=== PATIENT | female | born 1985 | race African-American/Black ===

== ENCOUNTER 2016-08-21 13:03 | Emergency (ER) | payer OTHER ==
[2016-08-21 13:08] VITALS: BP 124/80; PULSE 84; TEMP 98; BMI 29.2
[2016-08-21] MEDS ORDERED: ALBUTEROL SO4 2.5/IPRATROPIUM 0.5 INH SOL 3 ML VIAL.NEB. NEB ONE ×2 (14:03→14:13)
--- NOTE | 2016-08-21 16:43 | PDOC ---
History of Present Illness - General Chief Complaint: Cold Symptoms Stated Complaint: SOB, COUGHING Time Seen by Provider: 08/21/16 13:50 History Source: Patient Exam Limitations: No Limitations - History of Present Illness Initial Comments: 08/21/16 16:38 CC COUGHING FOR MONTHS; NO FEVER; NO NVD; Timing/Duration: denies: just prior to arrival Possible Cause: No: no prior episodes Modifying Factors: worse with: albuterol inhaler Past History - Past Medical History Allergies/Adverse Reactions: Allergies Allergy/AdvReac Type Severity Reaction Status Date / Time Tetracyclines Allergy Hives Verified 08/21/16 13:05 Home Medications: Ambulatory Orders NK [No Known Home Medication] 08/21/16 Diabetes: Yes (type 1) - Immunization History Immunization Up to Date: Yes - Psycho/Social/Smoking Cessation Hx Anxiety: No Suicidal Ideation: No Smoking History: Never smoked Have you smoked in the past 12 months: No Information on smoking cessation initiated: No Hx Alcohol Use: No Drug/Substance Use Hx: No Substance Use Type: None Review of Systems - Review of Systems Constitutional: Yes: Symptoms Reported. No: Chills, Fever, Malaise HEENTM: No: Symptoms Reported Respiratory: Yes: Cough. No: Symptoms reported, Orthopnea, SOB with Exertion, Wheezing Cardiac (ROS): Yes: Symptoms Reported ABD/GI: Yes: Symptoms Reported : Yes: Symptoms Reported *Physical Exam - Vital Signs Last Vital Signs Temp Pulse Resp BP Pulse Ox 98 F 84 20 124/80 99 08/21/16 13:06 08/21/16 13:06 08/21/16 13:06 08/21/16 13:06 08/21/16 13:06 - Physical Exam General Appearance: Yes: Appropriately Dressed. No: Apparent Distress HEENT: positive: TMs Normal, Pharynx Normal Neck: positive: Lymphadenopathy (R), Lymphadenopathy (L). negative: Tender, Rigid, Supple Respiratory/Chest: positive: Lungs Clear, Normal Breath Sounds, Respiratory Distress. negative: Accessory Muscle Use Cardiovascular: positive: Regular Rhythm, Regular Rate, Murmur ED Treatment Course - LABORATORY CBC & Chemistry Diagram: 08/21/16 14:07 - Medications Given in the ED: ED Medications Discontinued Medications Generic Name Dose Route Start Last Admin Trade Name Freq PRN Reason Stop Dose Admin Albuterol/Ipratropium 1 amp 08/21/16 14:03 08/21/16 14:14 Duoneb - NEB 08/21/16 14:04 1 amp ONCE ONE Administration Medical Decision Making - Medical Decision Making 08/21/16 16:41 UNABLE TO GET GLUCOSE; WILL CALL PT WITH RESULTS; WILL START SHORT COURSE ON PREDNISONE *DC/Admit/Observation/Transfer Diagnosis at time of Disposition: Coughing - Discharge Dispostion Disposition: HOME Condition at time of disposition: Stable Admit: No - Patient Instructions Additional Instructions: I WILL CALL YOU WITH RESULTS OF GLUCOSE AND CHANGE THERAPY NEEDED - Post Discharge Activity Work/School Note: Back to Work
[2016-08-21 17:02] LABS: CALCIUM 9.2 mg/dL (8.5-10.1); CREATININE 0.8 mg/dL (0.55-1.02)
== END 2016-08-21 17:42 | disposition home or self-care (01) ==
LOC: JERFT 13:03
PROC: 3E0F7GC Introduction of Other Therapeutic Substance into Respiratory Tract, Via Natural or Artificial Opening (ICD-10-PCS; principal; 2016-08-21)
DX: R05 Cough (principal); E10.9 Type 1 diabetes mellitus without complications; Z79.4 Long term (current) use of insulin
CPT/HCPCS: 36415; 80048; 99281-25

== ENCOUNTER 2019-02-07 12:44 | Day surgery (SDC) | payer OTHER ==
[2019-02-04 12:12] VITALS: BMI 30.2
[2019-02-07 14:53] LABS: GLUCOSE,FASTING 259 mg/dL (74-106)
[2019-02-07] MEDS ORDERED: CLINDAMYCIN PHOSPHATE 600 MG/4 ML VIAL IVPB ONE (15:18)
--- NOTE | 2019-02-07 15:58 | OP ---
Operative Note - Note: Operative Date: 02/07/19 Pre-Operative Diagnosis: Right renal stone Operation: Right ESWL Findings: 7 mm lover pole Right renal stones Post-Operative Diagnosis: Same as Pre-op Surgeon: Otilio Tovar Anesthesia: Fractional Estimated Blood Loss (mls): 0 Operative Report Dictated: Yes
[2019-02-07 18:39] VITALS: BP 118/70; PULSE 68; TEMP 97.8
--- NOTE | 2019-02-07 20:17 | OP ---
DATE OF OPERATION: 02/07/2019 PREOPERATIVE DIAGNOSIS: Right renal stone. POSTOPERATIVE DIAGNOSIS: Right renal stone. PROCEDURE PERFORMED: Right extracorporeal shock wave lithotripsy. SURGEON: Demond Tejada MD ANESTHESIA: Fractional. DESCRIPTION OF PROCEDURE: The patient was brought to the operating room and placed in the supine position on the operating room table. Ultrasonography and fluoroscopy were performed. A 7-mm right lower pole stone was identified. At this point fractional anesthesia was administered with antibiotics. The patient then underwent shock wave lithotripsy. The stone fragmented well under real time ultrasonography and fluoroscopy. DISPOSITION: The patient was sent to the recovery room. DEMOND TEJADA M.D. [id number]
== END 2019-02-07 17:45 | disposition home or self-care (01) ==
LOC: JASU-SURG 12:44
PROVIDERS: ATTEND Urology
PROC: 0TF3XZZ Fragmentation in Right Kidney Pelvis, External Approach (ICD-10-PCS; principal; 2019-02-07 14:00)
DX: N20.0 Calculus of kidney (principal); E11.9 Type 2 diabetes mellitus without complications; Z79.4 Long term (current) use of insulin
CPT/HCPCS: 36415; 82947; 84702